=== PATIENT | male | born 1970 | race Caucasian/White ===

== ENCOUNTER → 2018-07-05 | Outpatient (CLI) | payer BC ==
[~2018-07-05] MED LIST: GADOBUTROL 7.5 MMOL/7.5 ML VIAL IV ONE
--- NOTE | 2018-07-05 09:46 | KCIC ---
MRI of the Brain/IACs without and with contrast 07/05/2018 Clinical History: Right-sided hearing loss for 1.5 months. Technique: Unenhanced T1-weighted sagittal and axial and FLAIR, T2-weighted, gradient echo and diffusion-weighted axial images of the brain were obtained. Thin section T1-weighted and T2-weighted axial images through the IACs were obtained. After the intravenous administration of 7 cc of Gadavist, enhanced T1-weighted axial images of the brain were obtained. Additionally enhanced thin section T1-weighted axial and coronal images through the IACs were obtained. Findings:No previous imaging studies are available for comparison The ventricles and sulci are within normal limits in size and configuration. Patchy and a few small scattered areas of increased signal intensity are seen within the periventricular and subcortical white matter of both cerebral hemispheres on FLAIR and T2-weighted images consistent most likely with areas of minimal small vessel ischemic disease. No acute parenchymal abnormality is seen. No extra-axial fluid collection is seen. There is no MRI evidence of acute ischemia/infarction. No abnormal area contrast enhancement is seen. MRI images through the IACs are within normal limits. No abnormal soft tissue mass or area of abnormal contrast enhancement is seen. Mild to moderate mucosal thickening in seen scattered throughout the paranasal sinuses. An 1.5 cm mucous retention cyst is seen involving the right maxillary sinus. There are minimal bilateral mastoid effusions. Normal flow voids are seen within the major vascular structures surrounding the brain parenchyma. Impression: 1. No acute parenchymal abnormality is seen. 2. Negative MRI of the IACs. 3. Mild paranasal sinus and mastoid disease. Electronically signed by: Tyree Funes MD (07/05/2018 9:42 AM) [id number]
--- NOTE | 2018-07-05 09:56 | KCIC ---
Single view of the orbits 07/05/2018 INDICATION: Evaluate for radiopaque foreign body Comparison study: None FINDINGS: No radiopaque foreign bodies are identified. No fracture is seen. No evidence of sinusitis is appreciated. IMPRESSION: No radiopaque foreign bodies are identified Electronically signed by: Julio Kevin MD (07/05/2018 9:52 AM) [id number]
== END | disposition home or self-care (01) ==
LOC: KCIC MRI 07:40
PROVIDERS: ATTEND Otolaryngology
DX: Z01.00 Encounter for examination of eyes and vision without abnormal findings (principal); H91.91 Unspecified hearing loss, right ear
CPT/HCPCS: 70030; 70553; A9585

== ENCOUNTER 2020-03-03 20:58 | Emergency (ER) | payer BC ==
[~2020-03-03] VITALS: Ht 175.3 cm; Wt 79.5 kg
[2020-03-03] MEDS ORDERED: diazePAM 5 MG TABLET PO ONE (22:30)
[2020-03-03] MEDS ORDERED: MECLIZINE HCL 12.5 MG TABLET. PO ONE (22:30)
--- NOTE | 2020-03-03 22:43 | RAD ---
CT HEAD WO CONTRAST Date: 03/03/2020 10:20 PM Clinical Indication: Reason: dizziness / Spl. Instructions: / History: Comparison: None. Technique: 5 mm axial tomographic images were obtained of the head without contrast. These were viewed on brain and bone windows. One or more of the following dose reduction techniques were utilized: Automated exposure control (AEC), Adjustment of mA and/or kV according to patient size, Use of iterative reconstruction technique such as ASiR, CT scan done according to ALARA and image gently/image wisely Findings: The brain parenchyma is normal in attenuation. No intra- or extra-axial mass or fluid collection. No acute hemorrhage. The ventricles are normal in size, shape, and morphology. The ballesteros-white matter junction is normal. The subarachnoid cisterns are patent. The visualized paranasal sinuses are normal. The visualized portions of the orbits and globes are normal. The mastoid air cells are clear. The assembler show motor topogram shows no lytic lesion or fracture. Impression: No acute intracranial process. Electronically signed by: Mitesh Gonzalez MD (03/03/2020 10:40 PM) [id number]
[2020-03-03] MEDS ORDERED: MECL-75 PO (23:01)
--- NOTE | 2020-03-03 23:02 | PHYS DOC ---
Past Medical History Past Medical History: No Pertinent History Past Surgical History: No Surgical History Smoking Status: Current Every Day Smoker Alcohol Use: Occasionally General Adult EDM: Chief Complaint: DIZZY/LIGHT HEADED HPI: HPI: 49-year-old male presents with sudden onset of dizziness. He states when he turns his head he feels like the room is spinning it progressed now when he opens his eyes he becomes dizzy. He denies any headache or lateralizing neurologic weakness. He denies any chest pain or palpitations. He says he has had these before but they resolve spontaneously. [] Review of Systems: Review of Systems: Constitutional: Denies fever or chills. [] Eyes: Denies change in visual acuity. [] HENT: Denies nasal congestion or sore throat. [] Respiratory: Denies cough or shortness of breath. [] Cardiovascular: Denies chest pain or edema. [] GI: Denies abdominal pain, nausea, vomiting, bloody stools or diarrhea. [] : Denies dysuria. [] Musculoskeletal: Denies back pain or joint pain. [] Integument: Denies rash. [] Neurologic: Dizziness. [] Endocrine: Denies polyuria or polydipsia. [] Lymphatic: Denies swollen glands. [] Psychiatric: Denies depression or anxiety. [] Heart Score: Risk Factors: Risk Factors: DM, Current or recent (<one month) smoker, HTN, HLP, family history of CAD, obesity. Risk Scores: Score 0 - 3: 2.5% MACE over next 6 weeks - Discharge Home Score 4 - 6: 20.3% MACE over next 6 weeks - Admit for Clinical Observation Score 7 - 10: 72.7% MACE over next 6 weeks - Early Invasive Strategies Current Medications: Current Medications Medications (Trade) Dose Ordered Sig/Elvis Start Time Stop Time Status Last Admin Dose Admin Diazepam (Valium) 5 mg 1X ONCE 03/03/20 22:30 03/03/20 22:31 DC 03/03/20 22:38 5 MG Meclizine HCl (Antivert) 25 mg 1X ONCE 03/03/20 22:30 03/03/20 22:31 DC 03/03/20 22:38 25 MG Allergies: Allergies: Allergies Coded Allergies Type Severity Reaction Last Updated Verified No Known Drug Allergies 07/05/18 No Physical Exam: PE: Constitutional: Well developed, well nourished, appears uncomfortable [] HENT: Normocephalic, atraumatic, bilateral external ears normal, oropharynx moist, no oral exudates, nose normal. [] Eyes: PERRLA, EOMI, conjunctiva normal, no discharge, no noticeable nystagmus. [] Neck: Normal range of motion, no tenderness, supple, no stridor. [] Cardiovascular:Heart rate regular rhythm, no murmur [] Lungs & Thorax: Bilateral breath sounds clear to auscultation [] Abdomen: Bowel sounds normal, soft, no tenderness, no masses, no pulsatile masses. [] Skin: Warm, dry, no erythema, no rash. [] Back: No tenderness, no CVA tenderness. [] Extremities: No tenderness, no cyanosis, no clubbing, ROM intact, no edema. [] Neurologic: Alert and oriented X 3, normal motor function, normal sensory function, no focal deficits noted. [] Psychologic: Affect normal, judgement normal, mood normal. [] Current Patient Data: Vital Signs: Vital Signs Date Time Temp Pulse Resp B/P (MAP) Pulse Ox O2 Delivery O2 Flow Rate FiO2 03/03/20 21:00 97.8 82 20 129/79 (96) 97 Room Air 97.8 EKG: EKG: [] Radiology/Procedures: Radiology/Procedures: [] Impression: PROCEDURE: CT HEAD WO CONTRAST CT HEAD WO CONTRAST Date: 03/03/2020 10:20 PM Clinical Indication: Reason: dizziness / Spl. Instructions: / History: Comparison: None. Technique: 5 mm axial tomographic images were obtained of the head without contrast. These were viewed on brain and bone windows. One or more of the following dose reduction techniques were utilized: Automated exposure control (AEC), Adjustment of mA and/or kV according to patient size, Use of iterative reconstruction technique such as ASiR, CT scan done according to ALARA and image gently/image wisely Findings: The brain parenchyma is normal in attenuation. No intra- or extra-axial mass or fluid collection. No acute hemorrhage. The ventricles are normal in size, shape, and morphology. The ballesteros-white matter junction is normal. The subarachnoid cisterns are patent. The visualized paranasal sinuses are normal. The visualized portions of the orbits and globes are normal. The mastoid air cells are clear. The manager research development topogram shows no lytic lesion or fracture. Impression: No acute intracranial process. Course & Med Decision Making: Course & Med Decision Making Pertinent Labs and Imaging studies reviewed. (See chart for details) [] Dragon Disclaimer: Dragon Disclaimer: This electronic medical record was generated, in whole or in part, using a voice recognition dictation system. Departure Departure Impression: Primary Impression: Vertigo Disposition: HOME, SELF-CARE Condition: IMPROVED Referrals: NATHALIA CARMONA (PCP) Patient Instructions: Benign Positional Vertigo Scripts Meclizine Hcl (MECLIZINE HCL) 25 Mg Tablet 1 TAB PO Q8HRS PRN for dizziness, #30 TAB 30 Refills Prov: KELLEY HOPPER DO 03/03/20 KELLEY HOPPER DO March 03, 2020 23:02
[2020-03-03 23:20] VITALS: BP 124/79
--- NOTE | 2020-03-04 03:43 | EKG ---
[facility] [address] [place] [address] Test Date: 2020-03-03 Test Time: 21:37:40 Pat Name: JAYASHREE DENG Department: Room: Gender: M Chief Accountant: : 1970 Requested By: KELLEY HOPPER Order Number: [id number] Reading MD: Stuart Rahman MD Measurements Intervals Loving Rate: 64 P: 59 IL: 162 QRS: 4 QRSD: 86 T: 41 QT: 410 QTc: 427 Interpretive Statements SINUS RHYTHM Electronically Signed On 03-04-2020 14:59:51 CDT by Stuart Rahman MD
== END 2020-03-03 23:20 | disposition home or self-care (01) ==
LOC: ER 20:58
DX: R42 Dizziness and giddiness (principal); F17.200 Nicotine dependence, unspecified, uncomplicated
CPT/HCPCS: 70450; 93005; 99284-25; J8597